=== PATIENT | male | born 1960 | race Caucasian/White ===

== ENCOUNTER 2016-06-05 15:32 | Observation (INO) | payer MEDICARE ==
[2016-06-05] MEDS ORDERED: Aspirin Low Dose CHEW TAB* 81 MG PO ONE (15:58)
[2016-06-05] MEDS ORDERED: Nitroglycerin TAB 0.4 MG* 0.4 MG TAB SL PRN (15:58)
[2016-06-05 16:26] LABS: Hematocrit 44 % (42-52); Hemoglobin 15.3 g/dl (14.0-18.0); Mean Corpuscular HGB Conc 35 g/dl (31-36); Mean Corpuscular Hemoglobin 28 pg (27-31); Mean Corpuscular Volume 82 fL (80-94); Mean Platelet Volume 8 um3 (7.4-10.4); Red Blood Count 5.39 10^6/ul (4.0-5.4); Red Cell Distribution Width 14 % (10.5-15); White Blood Count 7.9 10^3/ul (3.5-10.8)
[2016-06-05 16:39] LABS: Albumin 4.5 g/dL (3.2-5.2); BUN/Creatinine Ratio 20.4 (8-20); Calcium 9.7 mg/dL (8.6-10.3); EGFR African American 95.7 (>60); EGFR Non-African American 74.4 (>60); Potassium 4.9 mmol/L (3.5-5.0); Total Bilirubin 0.8 mg/dL (0.2-1.0); Total Protein 7.5 g/dL (6.4-8.9)
[2016-06-05 16:49] LABS: Troponin I 0.08 ng/mL (<0.04)
--- NOTE | 2016-06-05 17:07 | RAD ---
Indication: Chest pain. Single frontal view of the chest performed at 1630 hours was reviewed. No prior study is available for comparison. No mediastinal shift is noted. Heart is of normal size and configuration. Lung beverly demonstrates right upper lobe infiltrate which may represent right upper lobe pneumonia.. IMPRESSION: FINDINGS SUGGESTIVE OF RIGHT UPPER LOBE PNEUMONIA.
[2016-06-05] MEDS ORDERED: Insulin REGULAR(*) 1 UNITS UNIT SUBCUT ONE (17:09)
[2016-06-05] MEDS ORDERED: Heparin DRIP 25,000 UNITS(*) 25,000 UNITS/500 ML BAG IVPB SCH (17:15)
[2016-06-05] MEDS ORDERED: Iohexol 350* (CONTRAST) 500 ML MDV IV ONE (17:20)
[2016-06-05] MEDS ORDERED: LORazepam INJ* 2 MG/ML 1 ML VIAL IV PUSH ONE (17:21)
[2016-06-05] MEDS ORDERED: Metoprolol Tartrate TAB* 25 MG PO ONE (17:50)
[2016-06-05] MEDS ORDERED: Heparin VIAL(*) 5000 UNITS/ML VIAL (FIVE THOUSAND) IV SCH ×2 (18:00)
--- NOTE | 2016-06-05 18:03 | RAD ---
Indication: Chest pain, noncompliant with anticoagulation. CTA of the chest performed after IV contrast administration. Coronal and sagittal reconstructed images were obtained. A total of Administered 83.0 ml of OMNIPAQUE 350 mgi/ml intravenously without adverse reaction. Pulmonary arterial tree is well opacified. There are no filling defects present to suggest pulmonary embolus. The aorta demonstrates no aneurysmal dilatation or aortic dissection. The heart is enlarged without evidence of pericardial effusion. Right basilar atelectasis is noted. No pleural fluid is identified. No evidence of focal nodules are identified. The visualized abdominal organs demonstrates left adrenal mass measuring 2.4 cm likely represents an adenoma. Gallstones are noted in the gallbladder. No hydronephrosis is noted. The bony structures demonstrates chronic compression of T6.. IMPRESSION: NO EVIDENCE OF PULMONARY EMBOLUS IS NOTED. RIGHT BASILAR ATELECTASIS IS NOTED. LEFT ADRENAL MASS MEASURING 2.4 CM. CHOLELITHIASIS WITHOUT BILIARY DUCTAL DILATATION. 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
[2016-06-05] MEDS ORDERED: Morphine INJ* 4 MG/ML 1 ML CARPUJECT IV PRN (18:15)
[2016-06-05] MEDS ORDERED: Ondansetron INJ* 2 MG/ML VIAL IV PRN (18:15)
[2016-06-05] MEDS ORDERED: Acetaminophen TAB* 325 MG PO PRN (18:15)
[2016-06-05] MEDS ORDERED: Enalapril TAB* 5 MG PO STA (18:18)
[2016-06-05] MEDS ORDERED: Insulin GLARGINE(*) 1 UNITS UNIT SUBCUT ONE (18:19)
[2016-06-05] MEDS ORDERED: Nitroglycerin 2% OINT* 1 GM PAK TOPICAL ONE (18:21)
[2016-06-05] MEDS ORDERED: Atorvastatin* 40 MG TAB PO STA (18:21)
[2016-06-05] MEDS ORDERED: Warfarin TAB(*) 5 MG PO ONE (18:38)
[2016-06-05] MEDS ORDERED: LORazepam TAB(*) 0.5 MG PO PRN (18:40)
[2016-06-05] MEDS: NS 0.9% 1000 ML* 1,000 ML IV SCH ×2 (20:38→21:23)
[2016-06-05] MEDS ORDERED: Insulin LISPRO* 1 UNITS UNIT SUBCUT SCH (21:00)
[2016-06-05] MEDS ORDERED: Metoprolol Tartrate TAB* 25 MG PO SCH ×2 (21:00→23:00)
[2016-06-05] MEDS ORDERED: Eptifibatide IV (Load dose)(*) 2 MG/ML 10 ml VIAL IV ONE (21:15)
[2016-06-05] MEDS ORDERED: Clopidogrel TAB* 300 MG PO ONE (21:15)
[2016-06-05] MEDS ORDERED: Eptifibatide (*) 100 ML IVPB SCH (22:00)
[2016-06-05] MEDS ORDERED: nitroGLYCERIN DRIP* 25,000 MCG in PREMIX* 0 ML IV SCH (22:00)
--- NOTE | 2016-06-05 22:00 | PN ---
Progress Note - Progress Note Note: Patient now with 4/10 chest/jaw pain. Morphine given. Spoke with Dr.s Miner and Cherise. Transfer to ICU. Place patient on Nitro drip . Start plavix 600 mg po x 1. Start integrillin double loading dose and IV drip. Continue heparin drip.
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
[2016-06-06 00:02] LABS: Troponin I 3.98 ng/mL (<0.04)
[2016-06-06 00:39] LABS: Hematocrit 41 % (42-52); Hemoglobin 14.2 g/dl (14.0-18.0); Mean Corpuscular HGB Conc 35 g/dl (31-36); Mean Corpuscular Hemoglobin 28 pg (27-31); Mean Corpuscular Volume 81 fL (80-94); Mean Platelet Volume 9 um3 (7.4-10.4); Red Blood Count 5.01 10^6/ul (4.0-5.4); Red Cell Distribution Width 14 % (10.5-15); White Blood Count 8.9 10^3/ul (3.5-10.8)
[2016-06-06] MEDS ORDERED: Midazolam* 1 MG/ML 5 ML VIAL (5 MG) ONE ×2 (00:43→02:46)
[2016-06-06] MEDS ORDERED: fentaNYL* 50 MCG/ML 2 ML VIAL (100 MCG VIAL) ONE ×2 (00:43→02:46)
[2016-06-06] MEDS ORDERED: Lidocaine 1% INJ* 10 MG/ML 30 ML SDV ONE (00:44)
[2016-06-06] MEDS ORDERED: nitroGLYCERIN DRIP* 250 ML ONE (00:44)
[2016-06-06] MEDS ORDERED: Heparin 2 UNITS/ML IVPREMIX* 3,000 ML IV ONE (00:44)
[2016-06-06] MEDS ORDERED: Iohexol 350 (CONTRAST) 200 ML MDV IV ONE (00:44)
[2016-06-06 01:48] VITALS: BP 105/71
[2016-06-06] MEDS ORDERED: Heparin(*) 1000 UNIT/ML 10 ML VIAL CATH LAB IV ONE (01:49)
[2016-06-06] MEDS ORDERED: Heparin 2 UNITS/ML IVPREMIX* 1,000 ML IV ONE (01:55)
[2016-06-06] MEDS ORDERED: Heparin DRIP 25,000 UNITS(*) 25,000 UNITS/500 ML BAG ONE (02:23)
[2016-06-06] MEDS ORDERED: NS 0.9% 1000 ML* 1,000 ML IV SCH (03:00)
[2016-06-06] MEDS ORDERED: Eptifibatide IV (Load dose)(*) 2 MG/ML 10 ml VIAL ONE (03:22)
[2016-06-06] MEDS ORDERED: Ondansetron INJ* 2 MG/ML VIAL ONE (03:23)
[2016-06-06] MEDS ORDERED: Lisinopril TAB* 5 MG PO SCH (09:00)
[2016-06-06] MEDS ORDERED: Clopidogrel TAB* 75 MG PO SCH (09:00)
[2016-06-06] MEDS ORDERED: Atorvastatin* 80 MG TAB PO SCH (17:00)
[2016-06-06] MEDS ORDERED: Atorvastatin* 40 MG TAB PO SCH (17:00)
--- NOTE | 2016-06-06 23:19 | ED ---
Reggie Gu Anna, scribed for Duong Monroe MD on 06/05/16 at 1552 . 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 He additionally has pain in his jaw and neck, which also radiates up and down his arm. He has experienced some diaphoresis and bilateral leg pain. He took 1 NTG which did not alleviate the symptoms but did give him a headache. He has had less of an appetite than normal. Denies coughing or edema. The patient describes the severity of the symptoms as 6/10. It peaked at 9/10. He has been on Lisinopril and Warfarin but has not had them for two weeks. The symptoms feel similar to his previous MIs. His Hx is significant for 2 MIs, cardiac stents, CABG, DM, CHF, and a filter. His most recent was a quadruple bypass at [facility] in 2009. - History of Current Complaint Time Seen by Provider: 06/05/16 15:35 Hx Obtained From: Patient - Allergy/Home Medications Allergies/Adverse Reactions: Allergies Allergy/AdvReac Type Severity Reaction Status Date / Time Sulfa Antibiotics Allergy Unknown Verified 06/05/16 15:41 Reaction Details PMH/Surg Hx/FS Hx/Imm Hx Previously Healthy: No Endocrine/Hematology History: Reports: Hx Diabetes Cardiovascular History: Reports: Hx Angioplasty, Hx Congestive Heart Failure, Hx Coronary Artery Disease, Hx Myocardial Infarction, Other Cardiovascular Problems/Disorders - stents, CABG - Family History Known Family History: Positive: Cardiac Disease - mom, dad, brother, Diabetes - Social History Occupation: Employed Part-time Lives: Alone Alcohol Use: None Hx Substance Use: No Substance Use Type: Reports: None Hx Tobacco Use: No Smoking Status (MU): Never Smoked Tobacco Review of Systems Positive: Skin Diaphoresis, Other - change in appetite. Negative: Fever, Chills Negative: Erythema Negative: Sore Throat Positive: Chest Pain Negative: Shortness Of Breath, Cough Negative: Abdominal Pain, Vomiting, Nausea Negative: dysuria, hematuria Positive: Arthralgia, Myalgia. Negative: Edema Negative: Rash Neurological: Other - Denies dizziness Positive: Headache All Other Systems Reviewed And Are Negative: Yes Physical Exam - Summary Physical Exam Summary: Constitutional: Well-developed, Well-nourished, Alert, (-) Distressed, Diaphoretic Skin: Warm HENT: Normocephalic; Atraumatic Eyes: Conjunctiva normal Neck: Musculoskeletal ROM normal neck. (-) JVD, (-) Stridor, (-) Tracheal deviation Cardio: Rhythm regular, rate normal, Heart sounds normal; Intact distal pulses; The pedal pulses are 2+ and symmetric. Radial pulses are 2+ and symmetric. (-) Murmur Pulmonary/Chest wall: Effort normal. (-) Respiratory distress, (-) Wheezes, (-) Rales Abd: Soft, (-) Tenderness, ~(-) Distension, (-) Guarding, (-) Rebound Musculoskeletal: (-) Edema Lymph: (-) Cervical adenopathy Neuro: Alert, Oriented x3 Psych: Mood and affect Normal Triage Information Reviewed: Yes Vital Signs On Initial Exam: Temp Pulse Resp BP Pulse Ox 98 F 64 16 190/97 97 06/05/16 16:03 06/05/16 16:03 06/05/16 16:03 06/05/16 16:03 06/05/16 16:03 Vital Signs Reviewed: Yes Diagnostics - Laboratory Result Diagrams: 06/05/16 16:10 06/05/16 16:10 Lab Statement: Any lab studies that have been ordered have been reviewed, and results considered in the medical decision making process. - Radiology CXR Xray Interpretation: Positive (See Comments) Radiology Interpretation Completed By: Radiologist - IMPRESSION: FINDINGS SUGGESTIVE OF RIGHT UPPER LOBE PNEUMONIA. - CT CTA Chest CT Interpretation: Positive (See Comments) CT Interpretation Completed By: Radiologist - IMPRESSION: NO EVIDENCE OF PULMONARY EMBOLUS IS NOTED. RIGHT BASILAR ATELECTASIS IS NOTED. LEFT ADRENAL MASS MEASURING 2.4 CM.CHOLELITHIASIS WITHOUT BILIARY DUCTAL DILATATION. 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 - EKG 15:41 Cardiac Rate: NL - 64 BPM EKG Interpretation: RBBB, No STEMI, ST depression in V1-V3, right side EKG needed 16:11 Cardiac Rate: NL - 65 bpm EKG Interpretation: RBBB, t-wave inversions in V1-V6 (R) Re-Evaluation - Re-Evaluation First Eval Re-Evaluation Time: 17:21 Change: Unchanged Comment: Discussed results with patient. Patient understands that he needs a CT but doesn't want to pay for it. He wants a guarantee that he will not have to pay for it. Second Eval Re-Evaluation Time: 17:58 Change: Unchanged - Pain is still 7/10 in same location as before. So far, he has been administered 1 NTG here, which has not alleviated the symptoms. He reports he is already taking Atenolol and took it this morning. Chest Pain Course/Dx - Course Assessment/Plan: Patient is a 56 y/o male coming to [facility] presenting with sudden onset of burning, right-sided chest pain that began an hour ago. He additionally has pain in his jaw and neck, which also radiates up and down his arm. He has experienced some diaphoresis and bilateral leg pain. An EKG reveals RBBB, No STEMI, ST depression in V1-V3. A repeat, right-sided EKG reveals RBBB and t-wave inversions in V1-V6 (R). Troponin was 0.08. CXR reveals findings suggestive of right upper lobe pneumonia. CTA Chest reveals left adrenal mass and cholelithiasis. Discussed patient care with Dr. Miner (rn clinical coordinator) at 17: 44. Dr. Miner looked at the EKG. He was also aware of the right-sided EKG and the patient's bypass graft history. Agreed with plan for Heparin and ASA. Recommended Beta rikki and adm to [facility] for hospitalist service. Patient will be admitted. - Diagnoses Provider Diagnoses: Financial difficulty, Non-STEMI (non-ST elevated myocardial infarction), Non compliance w medication regimen - Provider Notifications Discussed Care Of Patient With: Dr. Miner (rn clinical coordinator) at 17:44. Dr. Miner looked at the EKG. He was also aware of the right-sided EKG and the patient's bypass graft history. Agreed with plan for Heparin and ASA. Recommended Beta rikki and adm to [facility] for hospitalist service. Discharge - Discharge Plan Condition: Stable Disposition: ADMITTED TO [facility] documentation as recorded by the Reggie cueva Anna accurately reflects the service I personally performed and the decisions made by me, Duong Monroe MD.
--- NOTE | 2016-06-11 02:49 | CATH ---
CATHETERIZATION REPORT: DATE OF PROCEDURE: 06/06/16 - ROOM #ICU-08 PRIMARY: Dr. Be in [place]. MACHINE SPREADER: Dr. Santillan at [facility]. PROCEDURES: Right common femoral artery access with ultrasound assistance, bilateral selective coronary cineangiography, RIOJAS angiography, vein graft angiography, left heart catheterization, and left ventriculography. HISTORY: A 56-year-old diabetic with previous bypass grafting in 2009 with RIOJAS to the LAD, saphenous vein graft to RCA, saphenous vein graft to circumflex , and saphenous vein graft to diagonal. He presented with non-ST elevation infarct with continued chest pain in spite of medical management including anticoagulation, IV Integrilin, and IV nitroglycerin. He therefore underwent emergent catheterization. PROCEDURE ACCESS: Right femoral artery with ultrasound assistance, sheath 6-F. MEDICATIONS: 1. Subcu lidocaine. 2. IV Versed. 3. IV fentanyl. 4. Heparin 5000 units IV and IV heparin infusion. 5. IV Integrilin continued from pre-cath. DIAGNOSTIC CATHETERS: 6-F LILLIAN, 6-F L4, and 6-F pigtail. HEMODYNAMICS: Initial BP 122/76, LV 105/6-13, and no aortic valve gradient on pullback. At the end of the procedure, as he still had mild chest discomfort and had high - risk vein graft disease, which required transfer, an intra-aortic balloon pump was placed via the right femoral access site with essentially resolution of chest pain. ANGIOGRAPHY: RFA: Sheath enters in segment 2. There is no stenosis. RIOJAS: The LILLIAN is moderate, inserts into the LAD without insertion stenosis, fills at antegrade to the apex. The LAD is small, has diffuse plaquing at the apex, where the vessel is very small. Retrograde LAD fills back to a miniscule diagonal branch. RCA: The RCA is large, dominant with numerous previously placed stents. It has lengthy tubular up to 80% stenosis in the proximal segment. At the acute margin, there was another area of tubular stenosis culminating an 80% stenosis. At the crux, there is a 70% tubular stenosis. The PDA is relatively small, fills the distal end of a vein bypass graft, retrograde for a few centimeters to an occlusion point. Distal RCA is extensive, supplies a number of posterolateral branches. Vein graft to diagonal: It arises from the left side of the aorta. The graft has scattered luminal irregularity, but no significant stenosis, inserts into a relatively small caliber diagonal branch, which is graft dependent. There is some competitive flow at the LAD. Saphenous vein graft to circumflex: It arises from the left side of the aorta, has proximal 80% to 90% stenosis. The proximal two-thirds of the graft is filled with thrombus. The graft ends on a small marginal branch. Left main: The left main is relatively long. Has a tubular mid 30% to 40% stenosis. LAD: The LAD is small, is occluded after a isnum-gw-ithselic diagonal, which has proximal 80% stenosis. Circumflex: The circumflex is not dominant, has proximal 90% stenosis, supplies a small marginal and is then occluded. LV gram: There is mild mid anterolateral hypokinesis, mild inferior hypokinesis. Estimated LVEF 55%. CONCLUSION: 1. Severe diffuse extensive 3-vessel disease with previous bypass grafting and patent RIOJAS to the LAD, patent vein graft to a diagonal, occluded vein graft to a severely and diffusely diseased RCA with numerous areas of stenosis and in- stent restenosis. The vein graft to the circumflex is the likely culprit with a high- grade proximal stenosis with a very large thrombus burden. He will be transferred to a tertiary center. Anticoagulation was continued. Intra-aortic balloon pump was placed for ischemic pain relief. 2. Normal LVEF with mild regional wall motion abnormality. CC: Dr. Santillan * [id number]/[facility] #: [id number] MTDD
== END 2016-06-06 03:45 | disposition short-term general hospital (02) ==
LOC: ED 15:32 → MEDTELE 18:15 → ICU 22:33
PROVIDERS: ADMIT Internal Medicine; ATTEND Internal Medicine
DX: R07.9 Chest pain, unspecified (principal); I25.10 Atherosclerotic heart disease of native coronary artery without angina pectoris; Z95.1 Presence of aortocoronary bypass graft; E11.65 Type 2 diabetes mellitus with hyperglycemia; Z79.4 Long term (current) use of insulin; I50.9 Heart failure, unspecified; I25.2 Old myocardial infarction; Z98.62 Peripheral vascular angioplasty status; Z91.14 Patient's other noncompliance with medication regimen; Z87.891 Personal history of nicotine dependence; Z88.2 Allergy status to sulfonamides; I45.10 Unspecified right bundle-branch block
CPT/HCPCS: 33967; 36415; 71010; 71275; 80053; 83036; 83605; 83880; 84484; 84520; 85025; 85610; 85730; 86850; 86900; 86901; 87641; 93005; 93459; 96372; 96374; 96375; 99284; A9270-GY; C1725; C1887; G0378; J1327; J1644; J2060; J2250; J2270; J2405; J3010; Q9967